=== PATIENT | female | born 1990 | race Caucasian/White ===

== ENCOUNTER 2016-04-16 22:30 | Outpatient (CLI) | payer OTHER ==
[~2016-04-16 22:30] MED LIST: ZOFR20TA PO
== END 2016-04-16 23:20 | disposition home or self-care (01) ==
LOC: M LDO 22:30
PROVIDERS: ATTEND Obstetrics & Gynecology
DX: O47.1 False labor at or after 37 completed weeks of gestation (principal); Z3A.38 38 weeks gestation of pregnancy; O32.1XX0 Maternal care for breech presentation, not applicable or unspecified

== ENCOUNTER 2016-04-19 06:06 | Inpatient (IN) | payer OTHER ==
--- NOTE | 2016-04-09 12:27 | HPE ---
DATE OF SCHEDULED ADMISSION: 04/19/2016 This lady is a 25-year-old, 2, para 1, booked for elective repeat section 04/19/2016. PAST HISTORY: Is 10/14/2011 at 40 weeks section because of breech, 9 pounds 13 ounces. ALLERGIES: She has no known allergies. She has no past medical history. The only surgical intervention, as mentioned, was section. Her lab work shows she is O positive, HIV negative, hepatitis negative, rubella immune, VDRL negative. Varicella by history. Pap was normal. Urine was negative. Gonorrhea and chlamydia are negative. 1-hour glucose was 114. GBS is pending. We discussed the risks and benefits of repeat section, including hemorrhage, infection, perforation, , reoperation, remote possibility of hysterectomy, blood transfusion, laceration, intensive care unit (NICU) admission. We also discussed the risks and benefits of trial of labor after section (TOLAC), including the small risk of rupture of the uterus. Patient has elected with her to go ahead and have a repeat section. ON EXAMINATION: Today, symphysis fundus height is 37, vertex presenting. heart is 138 and regular. Blood pressure is 122/71, respirations are 18, pulse is 97, and she is afebrile. She is 5 feet 6 inches, weighs 239 pounds, and her body mass index (BMI) is not recorded. The rest of the examination, she is normocephalic, atraumatic. Neck full range of motions. Pupils equal and reactive to light. Distal pulses are symmetric. No evidence of deep venous thrombosis (DVT), pulmonary embolism (PE), or superficial phlebitis. Lungs are clear bilaterally to bases. No wheezes or rhonchi. No costovertebral angle (CVA) tenderness. Symphysis fundus height is appropriate. heart sounds are noted. Nontender uterus. She has no rashes or lesions or pruritus. No arthralgia, myalgia. No complaint of cough, wheezes, shortness of breath, or dyspnea on exertion. No allergies. No chest pain. No bleeding. Neurologically complete. No incontinence, urgency, frequency. No nausea, vomiting, diarrhea, or constipation. No diabetic issues. 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 No past medical history issues. PAST SURGICAL HISTORY: Is primary section. FAMILY HISTORY: Is noncontributory. She does not smoke or drink or abuse drugs. She is , and there is no domestic violence. IN SUMMARY: We have a lady who is 38+ weeks of gestation for repeat section. Signed and witnessed the consent form, and plan of management is, , patient is thinking of Mirena intrauterine contraceptive device (IUCD).
[2016-04-19] VITALS (7 sets, daily range): BP systolic 120–136; BP diastolic 54–80
[~2016-04-19] VITALS: Ht 165.1 cm; Wt 107.0 kg
[2016-04-19] MEDS ORDERED: LR 1,000 ML IV SCH (06:30)
[2016-04-19] MEDS ORDERED: BUPIVACAINE HCL 0.25% 10 ML VIAL XX ONE (06:30)
[2016-04-19] MEDS ORDERED: ACETAMINOPHEN 650 MG SUPP PR ONE (06:30)
[2016-04-19 06:48] LABS: MEAN CORPUSCULAR HEMOGLOBIN 27.8 pg (27.0-33.0); MEAN CORPUSCULAR HGB CONC 34.4 g/dl (32.0-36.5); MEAN CORPUSCULAR VOLUME 80.6 fl (80.0-96.0); RED CELL DISTRIBUTION WIDTH 13.8 % (11.5-14.5); WHITE BLOOD COUNT 7.2 K/mm3 (4.0-10.0)
[2016-04-19] MEDS ORDERED: BICITRA 30ML SOLN UDC PO SCH (07:01)
[2016-04-19] MEDS ORDERED: ONDANSETRON 4MG/2ML VIAL (J2405) IV PRN ×2 (08:00→09:45)
[2016-04-19] MEDS ORDERED: METOCLOPRAMIDE INJ 10MG/2ML VIAL (J2765) IV PRN (08:00)
[2016-04-19] MEDS ORDERED: NALOXONE INJ 0.4 MG/1 ML VIAL (J2310) IV PRN ×2 (08:00)
[2016-04-19] MEDS ORDERED: NALBUPHINE HCL 10 MG/ML AMP (J2300) IV PRN (08:00)
[2016-04-19] MEDS ORDERED: OXYTOCIN INJ 10 UNITS/ML VIAL (J2590) As Ordered ONE (08:03)
[2016-04-19] MEDS ORDERED: PHENYLephrine HCL 500 MCG/5 ML (100MCG/ML) SYRINGE (J2370) As Ordered ONE (08:03)
[2016-04-19] MEDS ORDERED: ONDANSETRON 4MG/2ML VIAL (J2405) As Ordered ONE (08:03)
[2016-04-19] MEDS ORDERED: MORPHINE PRES-FREE INJ 10 MG/10 ML VIAL (J2274) As Ordered ONE (08:03)
[2016-04-19 08:42] LABS: CORD GAS ABE V 1.1; CORD GAS HCO3 V 28.2 MEQ/L; CORD GAS PCO2 V 57.1 mmHg; CORD GAS PH V 7.312 UNITS; CORD GAS PO2 V 21.7 mmHg; CORD GAS SBC V 24.4 MEQ/L
[2016-04-19 08:44] LABS: CORD GAS ABE A -1.8; CORD GAS HCO3 A 24.9 MEQ/L; CORD GAS O2 SAT A 44.7 %; CORD GAS PCO2 A 50.5 mmHg; CORD GAS PH A 7.311 UNITS; CORD GAS PO2 A 20.7 mmHg; CORD GAS SBC A 21.9 MEQ/L; CORD GAS TCO2 A 26.5 MEQ/L
[2016-04-19] MEDS ORDERED: KETOROLAC 60 MG/2 ML VIAL (J1885) As Ordered ONE (08:46)
[2016-04-19] MEDS ORDERED: OXYTOCIN DRIP 30 UNITS in APPROPRIATE DILUENT 1 EA IV SCH (09:18)
[2016-04-19] MEDS ORDERED: MOM 30ML SUSPENSION UDC PO PRN (09:30)
[2016-04-19] MEDS ORDERED: RHOGAM 300 MCG (1500 IU) INJ (J2790) IM SCH (09:30)
[2016-04-19] MEDS ORDERED: MEASLES,MUMPS,RUBELLA VACCINE INJ (MMR-II) (90707) SC SCH (09:30)
[2016-04-19] MEDS ORDERED: ANUSOL HC CREAM 30GM TOP PRN (09:30)
[2016-04-19] MEDS ORDERED: PERCOCET 5MG/325MG TAB PO PRN ×2 (09:30)
[2016-04-19] MEDS ORDERED: OXYTOCIN INJ 10 UNITS/ML VIAL (J2590) IV ONE (09:30)
[2016-04-19] MEDS ORDERED: DOCUSATE SODIUM 100 MG CAP PO PRN (09:30)
[2016-04-19] MEDS ORDERED: fentaNYL 100 MCG/2 ML INJECTION (J3010) IV PRN (09:45)
[2016-04-19] MEDS: PRENATAL VITAMIN TAB PO SCH (12:21)
[2016-04-19] MEDS: LR 1,000 ML IV SCH ×2 (12:21→18:12)
--- NOTE | 2016-04-19 13:34 | RO ---
DATE OF PROCEDURE: 04/19/2016 PREOPERATIVE DIAGNOSIS: Repeat section, declined trial of labor after section (TOLAC). POSTOPERATIVE DIAGNOSIS: Repeat section, declined trial of labor after section (TOLAC). OPERATION PROPOSED: Repeat section. OPERATION PERFORMED: Repeat section. ANESTHESIA: Spinal plus local anesthetic for intraperitoneal procedures. ESTIMATED BLOOD LOSS: 150 mL. SURGEON: Ryder López MD FELLER BUNCHER OPERATOR: DESCRIPTION OF PROCEDURE: After adequate anesthesia, prepped, draped in the supine position, acetaminophen suppository 1300 mg per rectum, sequentials, Hough catheter in bladder, and adequate time-out, a Pfannenstiel incision was made two fingerbreadths above the symphysis pubis, passing through abdominal layers and securing hemostasis. Opening peritoneal cavity. Bladder reflected well anteriorly. Low transverse incision was made into the uterus. Artificial rupture of membranes draining clear liquor. We delivered a live female infant weighing 8 pounds 9 ounces, 3894 grams, scores of 9 and 9 at 1 and 5 minutes, respectively. Arterial pH 7.31, base excess -1.8, venous pH 7.31, base excess 1.1. Placenta was manually removed. The uterus was swept out cleanly. Examination of the membranes and tissues were intact. Three-vessel cord. Uterus contracted well under Pitocin. The lower segment was oversewn in two layers and reperitonealized was performed. With the instrument and pad counts correct, the ovaries and tubes appeared to be normal. The abdomen was closed with a running stitch for the peritoneum, same for the fascia, interrupted for subcutaneous. Dexon to the skin. Marcaine 0.25% 10 mL to the incision site with spray and Telfa. The patient was sent back to recovery in good condition. The only interesting issue was that the patient had extremely short cord, less than 7 inches of cord from baby to the placenta.
[2016-04-19] MEDS: IBUPROFEN 800 MG TAB PO SCH (18:56)
[2016-04-20 02:00] VITALS: BP 139/72
[2016-04-20] MEDS: IBUPROFEN 800 MG TAB PO SCH ×3 (02:26→19:22)
[2016-04-20 05:40] VITALS: BP 117/66
[2016-04-20 07:22] LABS: MEAN CORPUSCULAR HEMOGLOBIN 27.3 pg (27.0-33.0); MEAN CORPUSCULAR HGB CONC 33.3 g/dl (32.0-36.5); MEAN CORPUSCULAR VOLUME 82.2 fl (80.0-96.0); WHITE BLOOD COUNT 7.7 K/mm3 (4.0-10.0)
[2016-04-20] MEDS: PRENATAL VITAMIN TAB PO SCH (09:00)
[2016-04-20 09:53] VITALS: BP 125/80
[2016-04-20 14:15] VITALS: BP 137/84
[2016-04-20 18:27] VITALS: BP 132/84
[2016-04-21] MEDS: IBUPROFEN 800 MG TAB PO SCH ×2 (02:43→11:05)
[2016-04-21 06:11] VITALS: BP 148/78
[2016-04-21] MEDS: PRENATAL VITAMIN TAB PO SCH (11:05)
--- NOTE | 2016-04-21 14:37 | DSES ---
DATE OF ADMISSION: 04/19/2016 DATE OF DISCHARGE: 04/21/2016 This lady is a 2, now para 2, had a repeat section, live female infant 8 pounds 9 ounces, 3894 grams, scores of 9 and 9 at one and five minutes respectively. Arterial pH 7.31, base excess -1.8, venous pH 7.31, base excess 1.1. Her admitting hemoglobin was 11.0, hematocrit 32.0, platelets 216. Discharge hemoglobin 9.9, hematocrit 29.7, platelets are 188. Presently today, her vital signs are: Blood pressure is 148/78, respirations 16, pulse 79, temperature 97.4. Today we discussed phlebitis, cystitis, mastitis, endometritis, cellulitis, diet, exercise, pain management, perineal, breast, and wound care. She is normal normocephalic, atraumatic. Pupils equal and reactive to light. Neck is full range of motion. Distal pulses are symmetric. No evidence of deep venous thrombosis (DVT), pulmonary embolism (PE), or superficial phlebitis. Her chest is clear bilaterally to bases. No wheezes or rhonchi. Uterus is two below. Lochia is moderate. Incision is clean and dry. She has normal perineum. She has no rashes, lesions or pruritus. No arthralgia, myalgia. No complaints of cough, wheezes, shortness of breath or dyspnea on exertion. No chest pain. She is not bleeding. Neurologically complete. No incontinency, urgency or frequency. No nausea, vomiting, diarrhea or constipation. No diabetic issues. PAST SURGICAL HISTORY: She had a previous section. She does not smoke, drink or abuse drugs. She is . There is no domestic violence. IN SUMMARY: We have a term gestation in a repeat section, live female . The patient was given medications on discharge and also oral contraceptives to start at six weeks' time. All questions were answered. A 20 minute discussion included wound care.
== END 2016-04-21 15:10 | disposition home or self-care (01) | DRG 766 ==
LOC: M OBS 06:06 → M LDI 06:11 → M OBS 11:01
PROVIDERS: ADMIT Obstetrics & Gynecology; ATTEND Obstetrics & Gynecology
PROC: 10D00Z1 Extraction of Products of Conception, Low, Open Approach (ICD-10-PCS; principal; 2016-04-19 07:30)
DX: O34.211 Maternal care for low transverse scar from previous cesarean delivery (principal); Z3A.39 39 weeks gestation of pregnancy; O69.3XX0 Labor and delivery complicated by short cord, not applicable or unspecified; Z37.0 Single live birth

== ENCOUNTER 2016-09-11 18:14 | Emergency (ER) | payer OTHER ==
[~2016-09-11] VITALS: Ht 167.6 cm; Wt 97.7 kg
[2016-09-11] MEDS ORDERED: KETOROLAC 60 MG/2 ML VIAL (J1885) IM ONE (19:15)
[2016-09-11 19:41] LABS: CONTROL LINE UCG INT CTR LINE PRESENT
--- NOTE | 2016-09-11 19:50 | REPUSA ---
Clinical history: Pain. Check IUD. Findings: Real-time transabdominal and transvaginal ultrasound images of the pelvis were obtained. An anteverted uterus is noted, measuring 7.3 x 3.4 x 5.0 cm. The uterus demonstrates normal echotexture and echogenicity. The endometrial stripe is within normal limits. IUD is in place. The right ovary m easures 3.0 x 2.1 x 2.7 cm. The left ovary measures 2.1 x 1.8 by cm. No adnexal masses are seen. C olor Doppler flow is seen within both ovaries. There is no evidence of free fluid. Impression: Unremarkable ultrasound examination of the pelvis.
[2016-09-11] MEDS ORDERED: NAPR500T PO (20:03)
[2016-09-11 20:10] VITALS: BP 136/86
== END 2016-09-11 20:16 | disposition home or self-care (01) ==
LOC: M ED 19:01
DX: R10.30 Lower abdominal pain, unspecified (principal); Z79.3 Long term (current) use of hormonal contraceptives; Z87.891 Personal history of nicotine dependence
CPT/HCPCS: 76376; 76830; 76856; 81001; 84703; 87086; 93976; 96372; 99283; J1885